=== PATIENT | male | born 1980 | race Two or more races ===

== ENCOUNTER 2021-12-19 13:48 | Emergency (ER) | payer MEDICAID ==
[~2021-12-19] VITALS: Ht 152.4 cm; Wt 64.9 kg
[2021-12-19 14:36] VITALS: BP 168/95
[2021-12-19] MEDS ORDERED: HYDR-4303 PO (14:38)
[2021-12-19] MEDS ORDERED: GABA300C PO (14:38)
[2021-12-19] MEDS ORDERED: VALA100026 PO (14:38)
--- NOTE | 2021-12-19 14:55 | NUR ---
SEEN AND EXAMINED BY DR MORAN. D/C HOME IN STABLE CONDITION.
== END 2021-12-19 14:58 | disposition home or self-care (01) ==
LOC: ER 14:06
DX: B02.9 Zoster without complications (principal); Z79.899 Other long term (current) drug therapy